=== PATIENT | male | born 2005 | race Two or more races ===

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

== ENCOUNTER 2023-04-26 11:30 | Emergency (ER) | payer OTHER ==
[2023-04-26 11:44] VITALS: BP 118/74; PULSE 54; RESP 18; TEMP 98.5; BMI 21.8
[2023-04-26] MEDS ORDERED: ONDANSETRON 4 MG/2 ML VIAL IVPUSH ONE (11:53)
[2023-04-26] MEDS ORDERED: SODIUM CHLORIDE 0.9% 500 ML INFUS.BAG IV ONE (11:53)
[2023-04-26] MEDS ORDERED: ONDANSETRON 4 MG/2 ML VIAL ONE (12:05)
[2023-04-26] MEDS ORDERED: METOCLOPRAMIDE HCL INJECTION 10 MG/2 ML VIAL IVPUSH ONE (12:07)
[2023-04-26] MEDS ORDERED: METOCLOPRAMIDE HCL INJECTION 10 MG/2 ML VIAL ONE (12:07)
[2023-04-26 12:30] LABS: BASO % 1.3 % (0-2.0); EOS % 5.3 % (0-4.5); HEMATOCRIT 44.1 % (35.4-49); HEMOGLOBIN 14.8 GM/dL (11.7-16.9); LYMPH % 53.2 % (8-40); MCH 27.4 pg (25.7-33.7); MCHC 33.5 g/dl (32.0-35.9); MEAN CELL VOLUME 81.8 fl (80-96); MEAN PLT VOLUME 8.4 fl (7.5-11.1); MONO % 8.8 % (3.8-10.2); NEUT % 31.4 % (42.8-82.8); PLATELET COUNT 214 10^3/uL (134-434); RBC 5.39 M/mm3 (4.00-5.60); RDW 13.6 % (11.9-15.9); WHITE BLOOD COUNT 2.5 K/mm3 (4.0-10.0)
[2023-04-26 13:00] LABS: POTASSIUM 4.1 mmol/L (3.5-5.1)
[2023-04-26 13:04] LABS: ALBUMIN 4.4 g/dl (3.4-5.0); CALCIUM 9.4 mg/dL (8.5-10.1)
[2023-04-26 13:05] LABS: BLOOD UREA NITROGEN 9.9 mg/dL (7-18)
[2023-04-26 13:07] LABS: BILIRUBIN,DIRECT 0.2 mg/dL (0.0-0.2); CREATININE 0.9 mg/dL (0.55-1.3)
[2023-04-26 13:09] LABS: BILIRUBIN,TOTAL 0.8 mg/dL (0.2-1); TOT PROT 7.2 g/dl (6.4-8.2)
== END 2023-04-26 14:09 | disposition home or self-care (01) ==
LOC: JER 11:30
PROC: 3E033GC Introduction of Other Therapeutic Substance into Peripheral Vein, Percutaneous Approach (ICD-10-PCS; principal; 2023-04-26)
PROC: 3E033GC Introduction of Other Therapeutic Substance into Peripheral Vein, Percutaneous Approach (ICD-10-PCS; 2023-04-26)
DX: R11.10 Vomiting, unspecified (principal); R51.9 Headache, unspecified
CPT/HCPCS: 36415; 80048; 80076; 85025; 93005; 93010; 99284-25

== ENCOUNTER 2023-09-27 17:12 | Emergency (ER) | payer OTHER ==
[2023-09-27 17:21] VITALS: BP 120/74; PULSE 51; RESP 18; TEMP 97.4; BMI 21.8
[2023-09-27] MEDS ORDERED: SODIUM CHLORIDE 1,000 ML IV STA (19:14)
[2023-09-27] MEDS ORDERED: ACETAMINOPHEN 1000 MG/100 ML BAG IVPB ONE (19:15)
[2023-09-27] MEDS ORDERED: ONDANSETRON 4 MG/2 ML VIAL IVPUSH ONE (19:15)
[2023-09-27] MEDS ORDERED: FAMOTIDINE 20 MG/50 ML IVPB 20 MG/50 ML MG IVPB ONE ×2 (19:15→19:22)
[2023-09-27] MEDS ORDERED: ACETAMINOPHEN INJECTION 100 ML IVPB ONE (19:22)
[2023-09-27] MEDS ORDERED: ONDANSETRON 4 MG/2 ML VIAL ONE (19:22)
[2023-09-27 20:03] LABS: BASO % 0.7 % (0-2.0); EOS % 1.6 % (0-4.5); HEMATOCRIT 43.3 % (35.4-49); HEMOGLOBIN 14.9 GM/dL (11.7-16.9); LYMPH % 24.6 % (8-40); MCH 27.9 pg (25.7-33.7); MCHC 34.5 g/dl (32.0-35.9); MEAN PLT VOLUME 8.5 fl (7.5-11.1); MONO % 5.7 % (3.8-10.2); NEUT % 67.4 % (42.8-82.8); PLATELET COUNT 225 10^3/uL (134-434); RBC 5.34 M/mm3 (4.00-5.60); RDW 13.4 % (11.9-15.9); WHITE BLOOD COUNT 5.2 K/mm3 (4.0-10.0)
[2023-09-27 20:09] LABS: POTASSIUM 4.1 mmol/L (3.5-5.1)
[2023-09-27 20:11] LABS: CALCIUM 9.1 mg/dL (8.5-10.1)
[2023-09-27 20:12] LABS: ALBUMIN 4.5 g/dl (3.4-5.0); BLOOD UREA NITROGEN 12.2 mg/dL (7-18)
[2023-09-27 20:15] LABS: CREATININE 0.9 mg/dL (0.55-1.3)
[2023-09-27 20:16] LABS: TOT PROT 7.4 g/dl (6.4-8.2)
[2023-09-27 20:17] LABS: BILIRUBIN,TOTAL 0.7 mg/dL (0.2-1)
== END 2023-09-27 20:39 | disposition home or self-care (01) ==
LOC: JERFT 17:12
PROC: 3E033GC Introduction of Other Therapeutic Substance into Peripheral Vein, Percutaneous Approach (ICD-10-PCS; principal; 2023-09-27)
PROC: 3E033GC Introduction of Other Therapeutic Substance into Peripheral Vein, Percutaneous Approach (ICD-10-PCS; 2023-09-27)
PROC: 3E033NZ Introduction of Analgesics, Hypnotics, Sedatives into Peripheral Vein, Percutaneous Approach (ICD-10-PCS; 2023-09-27)
PROC: 3E0337Z Introduction of Electrolytic and Water Balance Substance into Peripheral Vein, Percutaneous Approach (ICD-10-PCS; 2023-09-27)
DX: R11.2 Nausea with vomiting, unspecified (principal); R51.9 Headache, unspecified; R68.83 Chills (without fever); K52.9 Noninfective gastroenteritis and colitis, unspecified; Z20.822 Contact with and (suspected) exposure to COVID-19
CPT/HCPCS: 0241U-QW; 36415; 80053; 83690; 85025; 99284-25

== ENCOUNTER 2024-05-08 13:07 | Emergency (ER) | payer OTHER ==
[2024-05-08 13:27] VITALS: BP 110/76; PULSE 104; RESP 18; TEMP 98; BMI 22.4
[2024-05-08] MEDS ORDERED: KETOROLAC TROMETHAMINE 30 MG/1 ML VIAL ONE (14:19)
[2024-05-08] MEDS: KETOROLAC TROMETHAMINE 30 MG/1 ML VIAL IM ONE (14:22)
== END 2024-05-08 14:34 | disposition home or self-care (01) ==
LOC: JERFT 13:07 → JER 13:07 → JERFT 14:34
PROC: 3E0233Z Introduction of Anti-inflammatory into Muscle, Percutaneous Approach (ICD-10-PCS; principal; 2024-05-08)
DX: S29.012A Strain of muscle and tendon of back wall of thorax, initial encounter (principal); X50.9XXA Other and unspecified overexertion or strenuous movements or postures, initial encounter; Y99.0 Civilian activity done for income or pay
CPT/HCPCS: 71046-TC-FY; 99284-25

== ENCOUNTER 2024-08-12 13:57 | Emergency (ER) | payer OTHER ==
[2024-08-12 14:26] VITALS: BP 132/77; PULSE 63; RESP 17; TEMP 98.4; BMI 22.4
[2024-08-12] MEDS ORDERED: IBUPROFEN 600 MG TABLET (FP) PO ONE (14:47)
[2024-08-12] MEDS: IBUPROFEN 600 MG TABLET (FP) PO ONE (14:49)
== END 2024-08-12 17:42 | disposition home or self-care (01) ==
LOC: JERFT 13:57
DX: S99.922A Unspecified injury of left foot, initial encounter (principal); X58.XXXA Exposure to other specified factors, initial encounter
CPT/HCPCS: 73630-TC-LT; 99283-25